=== PATIENT | female | born 1990 | race Hispanic/Latino ===

== ENCOUNTER 2017-12-07 14:23 | Outpatient (CLI) | payer OTHER ==
[2017-12-07] MEDS ORDERED: LACTATED RINGERS 500 ML IV ONE (14:57)
[2017-12-07 15:01] VITALS: BP 109/72
[2017-12-07 15:35] LABS: Bacteria,Urine 1+ /HPF (Negative); Bilirubin,Urine NEG (Negative); Blood,Urine NEG (Negative); Color,Urine Colorless (Yellow); Mucus,Urine FEW /HPF; Protein,Urine <15 mg/dL mg/dL (Negative); Urobilinogen,Urine < 2.0 mg/dL (<2.0); WBC,Urine < 1.0 /HPF (0.0-6.0)
[2017-12-07 15:37] LABS: RBC,Urine < 1.0 /HPF (0.0-6.0)
--- NOTE | 2017-12-07 16:43 | Ultrasound Report ---
FINAL REPORT EXAM: US OB BPP WO NON-STRESS HISTORY: BPP TECHNIQUE: Biophysical profile obstetrical ultrasound PRIORS: None. FINDINGS: LMP 04/10/2017 clinical Age: 34 w 3 d US Age (average) = 37 w 2 D EFW (BPD,HC,AC,FL) = 2985 g +/- 442 g (6 lbs.9 oz. +/- 16 oz.) LMP EDC 01/15/2018 US EDC 12/26/2017 Biophysical profile scoring 2 movement 2 tone 2 breathing 2 fluid 8/8 overall score Presentation: Cephalic Activity: Monitored Placental location: Fundal Placental grade: 1 Cardiac motion: 135 BPM using M-mode doppler Amniotic Fluid Volume: Adequate ARMEN 19.1 cm IMPRESSION: Single intrauterine viable with an approximate age of 37 weeks 2 days. Biophysical profile score is 8/8
--- NOTE | 2017-12-07 16:55 | Ultrasound Report ---
FINAL REPORT EXAM: US OB FOLLOW UP HISTORY: leaking TECHNIQUE: Limited obstetrical ultrasound. Obtaining the BPD and head circumference is limited due to positioning. PRIORS: None. FINDINGS: LMP 04/10/2017 clinical Age: 34 w 3 d US Age (average) = 37 w 2 D EFW (BPD,HC,AC,FL) = 2985 g +/- 442 g (6 lbs.9 oz. +/- 16 oz.) LMP EDC 01/15/2018 US EDC 12/26/2017 CI 85.0 (range 74 to 83) HC/AC 1.05 (range 0.96 to 1.11) FL/BPD 73.7 (range 71.9 to 87.9) FL/HC 20.6 (range 17 to 24.2) FL/AC 21.6 (range 20 to 24) BPD 9.4 cm corresponding to estimated age 38 weeks 3 days HC 33.9 cm corresponding to estimated age 38 weeks 6 days AC 32.3 cm corresponding to estimated age 36 weeks 1 day FL 7.0 cm corresponding to estimated age 35 weeks 5 days Presentation: Cephalic Activity: Monitored Placental location: Fundal Placental grade: 1 Cardiac motion: 135 BPM using M-mode doppler Heart (4 CH) : Present Umbilical cord: 3 vessel Amniotic Fluid Volume: Adequate ARMEN 19.1 cm IMPRESSION: Single intrauterine viable with an approximate age of 37 weeks 2 days.
== END 2017-12-07 17:30 | disposition home or self-care (01) ==
LOC: TRG 14:23
PROVIDERS: ATTEND Obstetrics & Gynecology
DX: O47.03 False labor before 37 completed weeks of gestation, third trimester (principal); Z3A.37 37 weeks gestation of pregnancy
CPT/HCPCS: 59025; 76816; 76819; 81001